=== PATIENT | male | born 1930 | race Caucasian/White ===

== ENCOUNTER → 2016-08-15 | Outpatient (CLI) | payer MEDICARE ==
[2016-08-15 14:34] LABS: CH 32.5; CHCM 33.7; HCT 40.2 % (39.0-53.0); HDW 2.49; HGB 13.5 gm/dL (13.0-17.5); MCH 32.6 pg (25.0-35.0); MCHC 33.6 g/dL (31.0-37.0); MCV 96.9 fL (80.0-100.0); Mean Platelet Volume 6.9; RBC 4.15 m/uL (4.30-5.90); RDW 13.9 % (11.5-15.5); WBC 7.9 k/uL (3.8-10.6)
[2016-08-15 14:39] LABS: Anion Gap 11 mmol/L; Blood Urea Nitrogen 18 mg/dL (9-20); Calcium 9.4 mg/dL (8.4-10.2); Carbon Dioxide 27 mmol/L (22-30); Chloride 102 mmol/L (98-107); Glucose 101 mg/dL (74-99); Non-African American GFR(MDRD) >60 (>60 ml/min/1.73 sqM); Potassium 3.8 mmol/L (3.5-5.1); Sodium 140 mmol/L (137-145)
== END | disposition home or self-care (01) ==
LOC: LABWHC1 13:42
PROVIDERS: ATTEND Internal Medicine Interventional Cardiology
DX: I25.10 Atherosclerotic heart disease of native coronary artery without angina pectoris (principal); I10 Essential (primary) hypertension
CPT/HCPCS: 36415; 80048; 85027

== ENCOUNTER 2016-08-22 07:27 | Day surgery (SDC) | payer MEDICARE ==
[2016-08-21 09:09] VITALS: BMI 25.2
[~2016-08-22 07:27] MED LIST: ALPRAZolam 0.25 MG TAB PO PRN; ALPRAZolam 0.5 MG TAB PO PRN; ASPIRIN 325 MG TAB PO STA; ATORVASTATIN 80 MG TAB PO STA; NITROGLYCERIN SL TABS 0.4 MG TAB SUBLINGUAL PRN; SODIUM CHLORIDE 0.9% 1,000 ML in EMPTY BAG 1 BAG IV ONE
[2016-08-22 07:55] VITALS: RESP 16; TEMP 97.8
[2016-08-22] MEDS ORDERED: LIDOCAINE 2% INJ 20 MG/ML (20 ML MDV) ONE (09:39)
[2016-08-22] MEDS ORDERED: diphenhydrAMINE 50 MG/ML 1 ML VIAL ONE (09:47)
[2016-08-22] MEDS ORDERED: MIDAZOLAM 2 MG/2 ML VIAL ONE (09:47)
[2016-08-22] MEDS ORDERED: MIDAZOLAM 2 MG/2 ML VIAL IVP ONE (09:53)
[2016-08-22] MEDS ORDERED: diphenhydrAMINE 50 MG/ML 1 ML VIAL IVP ONE (09:53)
[2016-08-22] MEDS ORDERED: LIDOCAINE 2% INJ 20 MG/ML SQ ONE (09:55)
[2016-08-22] MEDS ORDERED: NITROGLYCERIN SL TABS 0.4 MG TAB SUBLINGUAL ONE ×2 (10:33→10:39)
[2016-08-22] MEDS ORDERED: IOHEXOL 350 MG/ML 100 ML BOTTLE INJ ONE (10:40)
[2016-08-22] MEDS ORDERED: PRAMIPEXOLE 0.5 MG TAB PO STA (13:17)
[2016-08-22 13:59] VITALS: BP 142/75; PULSE 71
[2016-08-22] MEDS ORDERED: ACETAMINOPHEN TAB 325 MG TAB ONE (14:23)
--- NOTE | 2016-08-23 17:30 | CC ---
DATE OF SERVICE: 08/22/2016 PROCEDURE: 1. Left heart catheterization, coronary angiography and left ventriculography. 2. Selective injection of bypass grafts. 3. Selective injection of HALEY. 4. Aortography MOHAWK projection. Performed by: Dr. Jayson Canas. CLINICAL INFORMATION: Mr. Matt Johnson is an 85-year-old gentleman with a history of hypertension, hyperlipidemia, CAD, previous aortocoronary bypass surgery in 2005. He had HALEY to LAD, vein graft to the ramus and another vein graft to the obtuse marginal branch of circumflex. At that time, RCA was a calcified vessel with no more than 40% to 45% lesion and was not addressed. He has been having symptoms of angina and had a positive stress test suggestive of a moderate area of ischemia in the inferoapical wall and was advised cardiac catheterization. Risks, benefits, options and rationale were explained to the patient and his . PROCEDURE NOTE: Under local anesthesia and strict aseptic precautions, a 6 Hebrew introducer was placed in the right femoral artery. There was heavy calcification in the femoral system, I had some difficulty and had to use a Glidewire. Using the standard left Amado catheters, I performed selective coronary angiography of the left system. I used a Mariah catheter for selective injection of the RCA and the same catheter was used to perform HALEY injection and also vein graft to the obtuse marginal. I used an ART2 catheter to perform selective coronary angiography of the RCA, but I could not find the second vein graft. An LV gram was performed in 30 degrees RÍOS projection and aortogram was performed MOHAWK projection. Patient tolerated the procedure well. I recommended medical therapy with the understanding he may require intervention down the road and also I would seek a surgical opinion. The sheath was then taken out and manual compression applied and he was sent to the room in stable condition. CARDIAC CATHETERIZATION FINDINGS: The left ventricular end-diastolic pressure was about 20 mmHg without any significant gradient across the aortic valve. CORONARY ANGIOGRAPHIC FINDINGS : RIGHT CORONARY ARTERY: This is a dominant vessel, heavily calcified, very tortuous in the proximal one third and at a very angulated area there is an 80% lesion with heavy calcification after which the segment straightens out. The caliber improves and then distally there is again diffuse disease and vessel bifurcates into PDA and PLV. There are no other critical lesions distally, but proximally, there is heavily calcified angulation and an 80% lesion noted. Cannulation of the RCA was somewhat difficult with a very superior takeoff. LEFT MAIN CORONARY ARTERY: This is a short, patent vessel that has about 30 to 40% disease and then distally has almost a subtotal lesion and then bifurcates into LAD and circumflex. The distal left main therefore has a 90% proximal lesion. LEFT ANTERIOR DESCENDING CORONARY ARTERY: Limited antegrade flow noted with a small septal and diagonal branch. I do not see any significant opacification of the rest of the LAD. LEFT POSTERIOR CIRCUMFLEX CORONARY ARTERY: This vessel is totally occluded with limited antegrade flow and then there is total occlusion of the circumflex system noted. SAPHENOUS VEIN GRAFT TO THE OBTUSE MARGINAL BRANCH OF CIRCUMFLEX: This graft is widely patent in its origin, course and insertion site and the opacified obtuse marginal is widely patent and goes back and also pacifies the proximal circumflex and ramus intermedius as well. There is also a groove branch that is opacified. This single vein graft seems to opacify the obtuse marginal, the groove branch as well as the ramus intermedius branch. Saphenous vein graft to the ramus intermedius: This graft was not visualized and there is a suggestion of a total occlusion in some views, but I really could not get a good opacification of the vein graft to the ramus intermedius. Left internal mammary artery grafts to LAD: Initial injection of this graft revealed that the HALEY was patent. Insertion site was also free of significant disease, but there was not much antegrade flow. Most of the flow was seen in retrograde fashion. I gave some additional injections and eventually on the third injection, I saw that there was more of an antegrade flow but the flow was very sluggish beyond the insertion site. It appears that the LAD is a small caliber vessel and the proximal flow is good, but the distal flow is sluggish, but on the fourth injection I was able to opacify the branch almost to the apex. Left ventriculogram: This was performed in 30 degree RÍOS projection, revealed the left ventricle is of normal size with excellent contractility, estimated ejection fraction of 65% without mitral regurgitation. Excellent contractility, the estimated ejection fraction of 60% with mild mitral regurgitation. AORTOGRAM: This was performed in 30 degree MOHAWK projection. This revealed that catheter at the time of injection was actually a little bit into the LV. There is aortic root is opacified. Both the coronary arteries are opacified as well as the vein graft to the obtuse marginal is also seen faintly, but I could not see the other vein graft. The aortic root appears to be of normal size. FINAL IMPRESSION: This patient has a total occlusion of LAD, circumflex and a subtotal occlusion of left main. Right coronary artery is very tortuous, heavily calcified and has 80% proximal lesion. Vein graft to the obtuse marginal is free of significant disease, opacifies the entire circumflex system. The ramus graft appears to be totally occluded not visualized. The left internal mammary artery graft is patent, but beyond the insertion site is somewhat sluggish. Retrograde flow appears to be fairly well preserved. RECOMMENDATIONS: I will review the angiogram, seek a surgical opinion and then make a definitive recommendation. For now, patient will be on medical therapy. He will be discharged later today if he remains stable. Moderate conscious sedation was provided for one hour with a combination of Versed and Benadryl.
--- NOTE | 2016-08-23 17:32 | LTR ---
August 23, 2016 RE: Parag Johnson Dear Dr. Marrufo: Thank you for the opportunity to participate in the care of Mr. Johnson. Please find enclosed my detailed cardiac catheterization report for your review. I am recommending medical therapy for now, but I will seek a surgical opinion and consider intervention of RCA. I am concerned about the LAD graft and the distal flow. Based on these findings, after evaluation in the office, I will make specific recommendations. Thank you for your referral. Please call for questions. With kind personal regards, Sincerely, CONNER RICKETTS MD
== END 2016-08-22 18:37 | disposition home or self-care (01) ==
LOC: CATHCVL 07:27
PROVIDERS: ATTEND Internal Medicine Interventional Cardiology
DX: I25.110 Atherosclerotic heart disease of native coronary artery with unstable angina pectoris (principal); I25.82 Chronic total occlusion of coronary artery; R94.39 Abnormal result of other cardiovascular function study; Z95.1 Presence of aortocoronary bypass graft; I10 Essential (primary) hypertension; E78.5 Hyperlipidemia, unspecified; I08.0 Rheumatic disorders of both mitral and aortic valves; E78.00 Pure hypercholesterolemia, unspecified; E03.9 Hypothyroidism, unspecified; Z82.49 Family history of ischemic heart disease and other diseases of the circulatory system; Z79.82 Long term (current) use of aspirin; Z79.899 Other long term (current) drug therapy; Z88.2 Allergy status to sulfonamides; Z87.891 Personal history of nicotine dependence
CPT/HCPCS: 93459; 93567; 99152; 99153; C1769 ×3; C1894; J2001; J2250; J1200; Q9967

== ENCOUNTER → 2016-09-03 | Outpatient (CLI) | payer MEDICARE ==
[2016-09-03 13:52] LABS: CH 32.2; CHCM 33.3; HCT 41.5 % (39.0-53.0); HDW 2.25; HGB 13.9 gm/dL (13.0-17.5); MCH 32.6 pg (25.0-35.0); MCHC 33.5 g/dL (31.0-37.0); MCV 97.2 fL (80.0-100.0); Mean Platelet Volume 7.4; RBC 4.27 m/uL (4.30-5.90); WBC 6.4 k/uL (3.8-10.6)
[2016-09-03 14:27] LABS: Anion Gap 12 mmol/L; Blood Urea Nitrogen 20 mg/dL (9-20); Calcium 9.5 mg/dL (8.4-10.2); Carbon Dioxide 24 mmol/L (22-30); Chloride 101 mmol/L (98-107); Glucose 93 mg/dL (74-99); Non-African American GFR(MDRD) >60 (>60 ml/min/1.73 sqM); Potassium 3.8 mmol/L (3.5-5.1); Sodium 137 mmol/L (137-145)
== END | disposition home or self-care (01) ==
LOC: LABWHC1 13:32
PROVIDERS: ATTEND Internal Medicine Interventional Cardiology
DX: I25.10 Atherosclerotic heart disease of native coronary artery without angina pectoris (principal); I10 Essential (primary) hypertension
CPT/HCPCS: 36415; 80048; 85027

== ENCOUNTER 2016-09-18 05:52 | Inpatient (IN) | payer MEDICARE ==
[2016-09-17 09:01] VITALS: BMI 24.5
[2016-09-18] MEDS ORDERED: ALPRAZolam 0.5 MG TAB PO PRN (06:02)
[2016-09-18] MEDS ORDERED: NITROGLYCERIN SL TABS 0.4 MG TAB SUBLINGUAL PRN ×2 (06:02→09:57)
[2016-09-18] MEDS ORDERED: SODIUM CHLORIDE 0.9% 1,000 ML in EMPTY BAG 1 BAG IV ONE (06:02)
[2016-09-18] MEDS ORDERED: ASPIRIN 325 MG TAB PO STA (06:02)
[2016-09-18] MEDS ORDERED: ALPRAZolam 0.25 MG TAB PO PRN (06:02)
[2016-09-18] MEDS ORDERED: ATORVASTATIN 80 MG TAB PO STA (06:02)
[2016-09-18] MEDS ORDERED: MIDAZOLAM 2 MG/2 ML VIAL ONE (07:16)
[2016-09-18] MEDS ORDERED: diphenhydrAMINE 50 MG/ML 1 ML VIAL ONE (07:16)
[2016-09-18] MEDS ORDERED: LIDOCAINE 2% INJ 20 MG/ML (20 ML MDV) ONE ×2 (07:16→08:18)
[2016-09-18] MEDS ORDERED: diphenhydrAMINE 50 MG/ML 1 ML VIAL IVP ONE (07:35)
[2016-09-18] MEDS ORDERED: MIDAZOLAM 2 MG/2 ML VIAL IV ONE (07:35)
[2016-09-18] MEDS ORDERED: LIDOCAINE 2% INJ 20 MG/ML SQ ONE ×2 (07:43→08:00)
[2016-09-18] MEDS ORDERED: BIVALIRUDIN BOLUS 250 MG/50 ML IV ONE (08:15)
[2016-09-18] MEDS ORDERED: BIVALIRUDIN 250 MG in SODIUM CHLORIDE 0.9% 50 ML IV ONE (08:16)
[2016-09-18] MEDS ORDERED: HYDROmorphone 2 MG/ML 1 ML SYRINGE ONE (08:59)
[2016-09-18] MEDS: HYDROmorphone 2 MG/ML 1 ML SYRINGE IV ONE ×2 (09:01→09:36)
[2016-09-18] MEDS ORDERED: SODIUM CHLORIDE 0.9% 1,000 ML IV ONE (09:41)
[2016-09-18] MEDS ORDERED: CLOPIDOGREL 75 MG TAB PO ONE (09:50)
[2016-09-18] MEDS ORDERED: CLOPIDOGREL 75 MG TAB ONE (09:52)
[2016-09-18] MEDS ORDERED: ZOLPIDEM 5 MG TAB PO PRN (09:57)
[2016-09-18] MEDS ORDERED: ATROPINE SULFATE 0.1 MG/ML 10ML SYRINGE IV PRN (09:57)
[2016-09-18] MEDS ORDERED: RX INFO: IV CONTRAST WAS GIVEN 1 EACH MISC MISCELLANE PRN (09:57)
[2016-09-18] MEDS ORDERED: MAG HYDROX/AL HYDROX/SIMETH 30 ML CUP PO PRN (09:57)
[2016-09-18] MEDS ORDERED: DIAZEPAM 2 MG TAB PO PRN (10:03)
[2016-09-18] MEDS ORDERED: IOHEXOL 350 MG/ML 100 ML BOTTLE INJ ONE (10:05)
[2016-09-18 10:37] LABS: Glucose,Whole Blood 125 mg/dL (75-99)
[2016-09-18] MEDS: SODIUM CHLORIDE 0.9% 1,000 ML IV SCH (10:44)
--- NOTE | 2016-09-18 11:04 | PTCA ---
DATE OF SERVICE: 09/18/2016 PROCEDURE: 1. Transvenous temporary pacemaker placement from right femoral approach. 2. Orbital atherectomy of proximal severely calcified right coronary artery. 3. Stenting of proximal right coronary artery with JASPER. PERFORMED BY: Dr. Jayson Canas. PROCEDURE NOTE: Under local anesthesia and strict aseptic precautions, a 6 Ukrainian introducer was placed in the right femoral artery and right femoral vein. I had a lot of tortuosity and difficulty and therefore the right femoral sheath was taken out and manual compression used to secure hemostasis. I then went from the left femoral approach and placed a 6 Ukrainian introducer in the left femoral artery under strict aseptic precautions and local anesthesia uneventfully. Initially I started with a KRS guide catheter but I did not get a good guide support. I switched over to an ART 3.5 guide catheter. With this I was able to get a decent guide support. I initially advanced a long BMW, but I had difficulty wiring and therefore I switched over to a whisper wire. A 300 cm long whisper wire was placed. I used a Finecross straight catheter and exchanged this wire to a ViperWire to perform Orbital atherectomy. Prior to the intervention from the left femoral approach with the RCA, I placed a transvenous temporary pacemaker from the right femoral venous approach and the pacemaker was placed in the right ventricular apex with good thresholds. This was placed and a back-up rate of 40 with MA of 5. Good thresholds were obtained. I then performed orbital atherectomy of the proximal RCA lesion. Three passes performed at a low speed. Subsequent angiogram revealed that there was small perforation and also dissection at the site of the lesion. I immediately discontinued the Angiomax and went with a 2.0, 12 mm balloon and tamponaded the area proximal to the perforation. I still had the wire in position, but subsequently the wire position was lost as I was trying to advance a stent. I had to rewire it and at the time of rewiring I went through the dissected plaque in the proximal RCA and then went back into true lumen. I had a lot of difficulty advancing any stent. I gave multiple inflations with the balloon. Patient had transient chest pain with inferior ST elevation. I then switched over to a XBRCA guide catheter. With this, there was a better guide support. I used a whisper wire and left the whisper wire distally. It appeared that the wire went through the true lumen with a very nice wire movement. I deployed 2 stents 2.25 caliber stents at 15 massimo, one in the distal and one in the proximal portion of the calcified segment. It appeared that there I may have gone through the false lumen and came back into the true human when I looked at the angiograms, but the flow in the RCA was brisk. Patient's chest pain was completely gone. His EKG showed remarkable improvement with mild ST elevation that persisted. Flow was at DOT-3 with remarkably good angiographic appearance and flow. Patient was completely free of chest pain. Two drug-eluting stents of 2.25 caliber, 12 mm length were deployed. The patient received Angiomax bolus and infusion. He also received 300 mg of Plavix. The sheath was sutured in. The pacemaker backup was kept at a rate of 40 with MA of 5, but pacer was only as a backup, it was not being used. The arterial sheath was sutured in. Results were explained to the patient and also his family in great detail. I will watch him very closely in the ICU. I also performed echocardiogram right here in the labor utilization superintendent and there was no evidence of any pericardial effusion noted. Good angiographic result was achieved. There is a false lumen and I stented through that but the flow into the [place] vessel is excellent and the flow is a brisk with remarkably good angiographic appearance and flow. The observed perforation was totally sealed up. I expect the patient to do well, but we will watch him very closely. Both sheaths were sutured. Moderate conscious sedation was adminstered for 2 hours with Versed,Dilaudid and Benadryl. DYLAN
--- NOTE | 2016-09-18 11:06 | LTR ---
September 18, 2016 ASH ELLINGTON MD RE: Parag Johnson Dear Dr. Ellington: Thank you for the opportunity to participate in the care of Mr. Johnson. Please find enclosed my detailed PTCA report for your records. This was a technically difficult and challenging procedure. I had a dissection and perforation both of which were addressed and end result is good with a brisk flow. I expect the patient to do well and hopefully we will send him home in the next 48 hours. We will watch him closely in the ICU and I will pull the sheaths later on today. Thank you for your referral and please call for questions. With kindest regards. Sincerely yours, CONNER RCIKETTS MD
--- NOTE | 2016-09-18 11:38 | ECHOF ---
Referral Reason:R/O pericardial effusion MEASUREMENTS -------- HEIGHT: 175.3 cm WEIGHT: 75.3 kg BP: FINDINGS -------- Overall left ventricular systolic function is mildly impaired with, an EF between 45 - 50 %. Basal inferior LV wall motion is hypokinetic. There is no pericardial effusion. CONCLUSIONS -------- 1. Overall left ventricular systolic function is mildly impaired with, an EF between 45 - 50 %. 2. Basal inferior LV wall motion is hypokinetic. 3. There is no pericardial effusion. SPECIAL POLICE: Mishel Espinoza RDCS
[2016-09-18] MEDS: HEPARIN SODIUM,PORCINE 5,000 UNIT/ML 1 ML VIAL SQ SCH ×2 (14:32→20:03)
--- NOTE | 2016-09-18 14:48 | P.GSCN ---
<Shannen Castillo - Last Filed: 09/18/16 14:26> History of Present Illness Consult date: 09/18/16 Reason for Consult: Coronary artery disease, recommendations for surgical revascularization Requesting physician: Ilene Canas History of present illness: This 86-year-old gentleman who is following with Dr. NABIL Canas presented today for cardiac catheterization. He has a history of coronary artery disease with previous bypass graft surgery in 2005 utilizing the HALEY to the LAD, and saphenous vein grafts to the ramus and obtuse marginal arteries. He also had moderate disease in the RCA which was heavily calcified but was not grafted. Recently he complained of increased exertional dyspnea when mowing his lawn and had an abnormal stress test and was recommended to have cardiac catheterization. During this morning's heart catheterization the patient had a complicated PCI of the RCA including dissection which was tacked back using stents. His grafts were patent, he had DOT 3 flow with no significant stenosis. Dr. Mcneil from cardiothoracic surgery was consulted for coronary artery disease. Review of Systems 14 point review systems was completed and was negative except as noted. Past Medical History Past Medical History: Coronary Artery Disease (CAD), Cancer, GERD/Reflux, Hyperlipidemia, Hypertension, Prostate Disorder, Skin Disorder, Thyroid Disorder Additional Past Medical History / Comment(s): hiatal hernia, hx skin cancer History of Any Multi-Drug Resistant Organisms: None Reported Past Surgical History: Cholecystectomy, Coronary Bypass/CABG, Heart Catheterization, Tonsillectomy Additional Past Surgical History / Comment(s): triple bypass 2005, skin cancer removed from face, surgery for pyloric stenosis as infant, shari cataracts, Past Anesthesia/Blood Transfusion Reactions: No Reported Reaction Past Psychological History: No Psychological Hx Reported Smoking Status: Former smoker Past Alcohol Use History: Rare Additional Past Alcohol Use History / Comment(s): smoked age 17, on and off until 1956 Past Drug Use History: None Reported - Past Family History Mother Family Medical History: Cancer Medications and Allergies Home Medications Medication Instructions Recorded Confirmed Type Atenolol [Tenormin] 25 mg PO DAILY 08/21/16 09/18/16 History Diazepam 2 mg PO DAILY PRN 08/21/16 09/18/16 History Levothyroxine Sodium [Synthroid] 75 mcg PO DAILY 08/21/16 09/18/16 History Lisinopril [Zestril] 20 mg PO DAILY 08/21/16 09/18/16 History Multivitamins, Thera [Multivitamin 1 tab PO DAILY 08/21/16 09/18/16 History (formulary)] Pramipexole [Mirapex] 0.5 mg PO HS 08/21/16 09/18/16 History hydrALAZINE HCL [Apresoline] 50 mg PO BID 08/21/16 09/18/16 History Hydrochlorothiazide [Hydrodiuril] 25 mg PO DAILY 09/18/16 09/18/16 History Allergies Allergy/AdvReac Type Severity Reaction Status Date / Time Sulfa (Sulfonamide Allergy Unknown Verified 09/18/16 06:17 Antibiotics) Surgical - Exam Vital Signs Temp Resp BP Pulse Ox 97.8 F 18 143/78 97 09/18/16 06:35 09/18/16 06:35 09/18/16 06:35 09/18/16 06:35 - General well developed, well nourished, no distress, no pain - Eyes PERRL, normal ocular movement - ENT no hearing loss - Neck trachea midline - Respiratory Currently on room air with oxygen saturation 97%. normal expansion, normal respiratory effort, clear to auscultation - Cardiovascular Sinus bradycardia on telemetry. Transvenous pacemaker connected through right groin venous sheath, VVI backup rate 40 bpm. Left groin arterial sheath in place. Rhythm: regular Heart Sounds: normal: S1, S2 - Abdomen Abdomen: soft, non tender, bowel sounds - Genitourinary Deferred - Rectum Deferred - Integumentary Bilateral groins soft, nontender. no rash - Neurologic normal coordination, normal sensation - Psychiatric oriented to time, oriented to person, oriented to place, speech is normal, memory intact Results - Labs Abnormal Lab Results - Last 24 Hours (Table) 09/18/16 Range/Units 10:35 POC Glucose (mg/dL) 125 H (75-99) mg/dL Assessment and Plan (1) Coronary artery disease Status: Acute (2) Status post coronary artery bypass graft Status: Acute (3) Hypertension Status: Acute (4) Hyperlipidemia Status: Acute (5) Hypothyroidism Status: Acute Plan: The patient was seen and examined with Dr. Mcneil. Chart/diagnostics reviewed. Patient is in no acute distress. No surgical intervention planned at this time. Our recommendation would be to observe his clinical status and maximize his medical management. If he should become unstable we would consider a redo coronary artery bypass graft surgery. Thank you Dr. Canas for this consult. We look for to do the care of your patient. Time with Patient: Greater than 30 <Elmer Mcneil - Last Filed: 09/21/16 09:31> Surgical - Exam Vital Signs Temp Resp BP Pulse Ox 97.8 F 18 143/78 97 09/18/16 06:35 09/18/16 06:35 09/18/16 06:35 09/18/16 06:35 Results - Labs 09/20/16 06:00 09/20/16 06:00 Assessment and Plan Plan: Agree with above. Cath films were reviewed. Complicated intervention on calcified right coronary artery with iatrogenic dissection and microperforation. Subsequent angioplasty and stenting with good angiographic result and DOT 3 flow to distal vessel. Patient currently asymptomatic. Would only recommend surgical intervention if significant symptoms should recur. Thank you.
[2016-09-18] MEDS: ceFAZolin 1,000 MG in DEXTROSE/WATER 1 50ML.BAG IVPB SCH (15:11)
[2016-09-18] MEDS ORDERED: HYDROmorphone 1 MG/ML 1 ML SYRINGE ONE (16:21)
[2016-09-18] MEDS: HYDROmorphone 1 MG/ML 1 ML SYRINGE IVP PRN (16:25)
[2016-09-18] MEDS ORDERED: TEMAZEPAM 15 MG CAP PO PRN (17:51)
[2016-09-18] MEDS: PRAMIPEXOLE 0.5 MG TAB PO SCH (20:03)
[2016-09-18] MEDS: hydrALAZINE HCL 50 MG TAB PO SCH (20:03)
[2016-09-19] MEDS: SODIUM CHLORIDE 0.9% 1,000 ML IV SCH (00:35)
[2016-09-19] MEDS: ceFAZolin 1,000 MG in DEXTROSE/WATER 1 50ML.BAG IVPB SCH ×2 (00:35→08:50)
[2016-09-19] MEDS: HYDROmorphone 1 MG/ML 1 ML SYRINGE IVP PRN ×4 (02:51→18:52)
[2016-09-19 04:56] LABS: Basophils % (A) 0 %; CH 32.4; CHCM 33.3; Eosinophils # (A) 0.1 k/uL (0-0.7); Eosinophils % (A) 1 %; HCT 37.4 % (39.0-53.0); HDW 2.17; HGB 12.3 gm/dL (13.0-17.5); Luc # (Auto) 0.12; Luc % (Auto) 2; Lymphocytes # (A) 1.4 k/uL (1.0-4.8); Lymphocytes % (A) 18 %; MCH 32.1 pg (25.0-35.0); MCV 97.5 fL (80.0-100.0); Mean Platelet Volume 7.2; Monocytes # (A) 0.4 k/uL (0-1.0); Monocytes % (A) 5 %; Neutrophils # (A) 5.6 k/uL (1.3-7.7); Neutrophils % (A) 75 %; RBC 3.84 m/uL (4.30-5.90); RDW 14.1 % (11.5-15.5); WBC 7.5 k/uL (3.8-10.6); WBC (Perox) 7.66
[2016-09-19 05:15] LABS: Anion Gap 6 mmol/L; Blood Urea Nitrogen 18 mg/dL (9-20); Calcium 8.8 mg/dL (8.4-10.2); Carbon Dioxide 25 mmol/L (22-30); Chloride 102 mmol/L (98-107); Glucose 111 mg/dL (74-99); Non-African American GFR(MDRD) >60 (>60 ml/min/1.73 sqM); Sodium 133 mmol/L (137-145)
[2016-09-19] MEDS: LEVOTHYROXINE 75 MCG TAB PO SCH (05:59)
[2016-09-19] MEDS ORDERED: ATROPINE SULFATE 0.1 MG/ML 10ML SYRINGE ONE (08:36)
[2016-09-19] MEDS: ATENOLOL 25 MG TAB PO SCH (08:43)
[2016-09-19] MEDS: LISINOPRIL 20 MG TAB PO SCH (08:43)
[2016-09-19] MEDS: HYDROCHLOROTHIAZIDE 12.5 MG CAP PO SCH (08:43)
[2016-09-19] MEDS: CLOPIDOGREL 75 MG TAB PO SCH (08:43)
[2016-09-19] MEDS: ASPIRIN 81 MG CHEW PO SCH (08:43)
[2016-09-19] MEDS: HEPARIN SODIUM,PORCINE 5,000 UNIT/ML 1 ML VIAL SQ SCH ×2 (08:44→20:19)
[2016-09-19] MEDS: hydrALAZINE HCL 50 MG TAB PO SCH ×2 (08:44→20:19)
--- NOTE | 2016-09-19 09:43 | P.PN ---
Subjective Principal diagnosis: Coronary artery disease, status post cardiac catheterization. Patient is currently sitting up in the bed in no acute distress. Denies chest pain, shortness of breath. Left femoral arterial sheath was discontinued. Right femoral venous sheath remains in place but is about to be pulled. Objective - Vital Signs Vital signs: Vital Signs Temp 98.2 F 09/19/16 08:00 Pulse 63 09/19/16 09:00 Resp 16 09/19/16 09:00 BP 135/72 09/19/16 09:00 Pulse Ox 95 09/19/16 09:00 Intake & Output 09/18/16 09/19/16 09/19/16 18:59 06:59 18:59 Intake Total 1895 900 225 Output Total 1755 1275 300 Balance 140 -375 -75 Weight 83 kg 81.9 kg Intake: IV 1475 900 225 Sodium Chloride 0.9% 1, 600 900 225 000 ml @ 75 mls/hr IV . [id number] MAURISIO Rx#:[id number] Intake, IV Titration 100 Amount ceFAZolin 1,000 mg In 100 Dextrose/Water 1 50ml.bag @ 100 mls/hr IVPB Q8HR MAURISIO Rx#:[id number] Oral 320 Output: Urine 1755 1275 300 Other: # Bowel Movements 0 ABP, PAP, CO, CI - Last Documented Arterial Blood Pressure 349/345 - Constitutional General appearance: Present: cooperative, no acute distress - Respiratory Details: Lungs sounds diminished bilaterally. Respirations even, nonlabored. Currently on room air with oxygen saturation 96%. - Cardiovascular Details: Normal sinus rhythm on telemetry. Palpable DP/PT pulses bilaterally. Rhythm: regular Heart sounds: normal: S1, S2 - Gastrointestinal Gastrointestinal Comment(s): Abdomen soft, nontender, nondistended. Active bowel sounds 4 quadrants. Tolerating diet. - Genitourinary Genitourinary Comment(s): Continues to void clear, yellow urine per urinal. - Musculoskeletal Musculoskeletal: Present: strength equal bilaterally - Psychiatric Psychiatric: Present: A&O x's 3, appropriate affect, intact judgment & insight - Allied health notes Allied health notes reviewed: nursing - Labs CBC & Chem 7: 09/19/16 04:46 09/19/16 04:46 Labs: Abnormal Lab Results - Last 24 Hours (Table) 09/18/16 09/19/16 09/19/16 Range/Units 10:35 04:46 04:46 RBC 3.84 L (4.30-5.90) m/uL Hgb 12.3 L (13.0-17.5) gm/dL Hct 37.4 L (39.0-53.0) % Sodium 133 L (137-145) mmol/L Glucose 111 H (74-99) mg/dL POC Glucose (mg/dL) 125 H (75-99) mg/dL Assessment and Plan (1) Coronary artery disease Status: Acute (2) Status post coronary artery bypass graft Status: Acute (3) Hypertension Status: Acute (4) Hyperlipidemia Status: Acute (5) Hypothyroidism Status: Acute Plan: The patient was seen and examined. Chart/diagnostics reviewed. Patient is in no acute distress. Management per cardiology. No surgical intervention at this time. We will see patient as needed. Time with Patient: Greater than 30
--- NOTE | 2016-09-19 12:22 | P.CONS ---
History of Present Illness - Reason for Consult Consult date: 09/19/16 CHest pain - History of Present Illness This 86-year-old male patient of Dr Marrufo with past history of coronary artery disease with previous bypass graft surgery in 2005 utilizing the HALEY to the LAD , and saphenous vein grafts to the ramus and obtuse marginal arteries. He also had moderate disease in the RCA which was heavily calcified but was not grafted. He also has history of gastroesophageal reflux disease, hyperlipidemia , hypertension, skin cancer, hypothyroidism. Recently he complained of increased exertional dyspnea when mowing his lawn and had an abnormal stress test and was recommended to have cardiac catheterization. He underwent a heart catheterization with Dr. NABIL Canas yesterday and found to have aheart catheterization the patient had a complicated PCI of the RCA including dissection which was tacked back using stents. His grafts were patent, he had DOT 3 flow with no significant stenosis. Dr. Mcneil from cardiothoracic surgery was consulted for coronary artery disease. Patient was seen by cardiothoracic surgery and he was recommended for medical management for now unless the patient was quite symptomatic and and stable, patient has been doing fine over the last 24 hours he is sitting up in bed in no apparent distress he denies any chest pain or discomfort and some shoulder aches and he denies any dizziness or lightheadedness at this time. Review of Systems Constitutional: Denies anorexia, Denies chronic headaches, Denies lethargy, Denies malaise, Denies weight gain, Denies weight loss Eyes: denies blurred vision, denies bulging eye, denies decreased vision, denies diplopia Ears: deny: decreased hearing Ears, nose, mouth and throat: Denies dysphagia, Denies neck lump, Denies swelling in throat, Denies sore throat, Denies vertigo Cardiovascular: Reports decreased exercise tolerance, Reports dyspnea on exertion, Reports high blood pressure, Reports shortness of breath, Denies chest pain, Denies phlebitis, Denies rapid heart beat, Denies syncope Respiratory: Denies congestion, Denies cough, Denies cough with sputum, Denies home oxygen, Denies sleep apnea, Denies snoring, Denies wheezing Gastrointestinal: Denies abdominal pain, Denies bloating, Denies BRBPR, Denies heartburn, Denies hematemesis, Denies hematochezia, Denies melena, Denies nausea , Denies vomiting Genitourinary: Reports nocturia, Denies dysuria Musculoskeletal: Denies myalgias Musculoskeletal: absent: ankle pain, ankle stiffness, ankle swelling, as per HPI , elbow pain, elbow stiffness, elbow swelling, foot pain, foot stiffness, foot swelling, hand pain, hand stiffness, hand swelling, hip pain, hip stiffness, hip swelling, knee pain, knee stiffness, knee swelling, shoulder pain, shoulder stiffness, shoulder swelling, wrist pain, wrist stiffness, wrist swelling Integumentary: Denies pruritus, Denies rash Neurological: Denies numbness, Denies weakness Psychiatric: Denies anxiety, Denies depression Endocrine: Denies fatigue, Denies weight change Past Medical History Past Medical History: Coronary Artery Disease (CAD), Cancer, GERD/Reflux, Hyperlipidemia, Hypertension, Osteoarthritis (OA), Prostate Disorder, Skin Disorder, Thyroid Disorder Additional Past Medical History / Comment(s): hiatal hernia, hx skin cancer History of Any Multi-Drug Resistant Organisms: None Reported Past Surgical History: Cholecystectomy, Coronary Bypass/CABG, Heart Catheterization, Tonsillectomy Additional Past Surgical History / Comment(s): triple bypass 2006, skin cancer removed from face, surgery for pyloric stenosis as infant, shari cataracts, laparoscopic cholecystectomy. Past Anesthesia/Blood Transfusion Reactions: No Reported Reaction Past Psychological History: No Psychological Hx Reported Smoking Status: Former smoker (Patient used to smoke about a pack every week and he smoked from the age of 17 and he quit in 1956.) Past Alcohol Use History: Rare Additional Past Alcohol Use History / Comment(s): smoked age 17, on and off until 1956 Past Drug Use History: None Reported - Past Family History Mother Family Medical History: Cancer (Mother at age of 81 from stomach cancer.) Father Family Medical History: Coronary Artery Disease (CAD) (Father at age of 81 from CAD.) Sister(s) Family Medical History: No Reported History (Patient has a younger sister with no major medical problems.) Daughter(s) Family Medical History: No Reported History (Patient has one daughter no major medical problems) Son(s) Family Medical History: No Reported History (Patient has 2 sons no major medical problems.) Medications and Allergies Home Medications Medication Instructions Recorded Confirmed Type Aspirin 325 mg PO DAILY 08/21/16 09/18/16 History Atenolol [Tenormin] 25 mg PO DAILY 08/21/16 09/18/16 History Atorvastatin [Lipitor] 20 mg PO HS 08/21/16 09/18/16 History Diazepam 2 mg PO DAILY PRN 08/21/16 09/18/16 History Levothyroxine Sodium [Synthroid] 75 mcg PO DAILY 08/21/16 09/18/16 History Lisinopril [Zestril] 20 mg PO DAILY 08/21/16 09/18/16 History Multivitamins, Thera [Multivitamin 1 tab PO DAILY 08/21/16 09/18/16 History (formulary)] Niacin 250 mg PO DAILY 08/21/16 09/18/16 History Omeprazole 20 mg PO DAILY 08/21/16 09/18/16 History Pramipexole [Mirapex] 0.5 mg PO HS 08/21/16 09/18/16 History hydrALAZINE HCL [Apresoline] 50 mg PO BID 08/21/16 09/18/16 History Hydrochlorothiazide [Hydrodiuril] 25 mg PO DAILY 09/18/16 09/18/16 History Allergies Allergy/AdvReac Type Severity Reaction Status Date / Time Sulfa (Sulfonamide Allergy Unknown Verified 09/18/16 06:17 Antibiotics) Physical Exam Vitals: Vital Signs Temp Pulse Pulse Pulse Resp BP BP 09/19/16 09:00 63 16 135/72 09/19/16 08:00 98.2 F 64 18 131/75 09/19/16 07:00 62 15 112/70 09/19/16 06:00 71 33 H 118/69 09/19/16 05:00 63 11 L 101/66 09/19/16 04:00 65 17 104/65 09/19/16 03:00 65 15 117/66 09/19/16 02:00 61 12 123/71 09/19/16 01:00 64 16 138/80 09/19/16 00:00 98.3 F 73 12 108/69 09/18/16 23:00 65 10 L 135/68 09/18/16 22:00 66 16 137/79 09/18/16 21:00 71 16 136/87 09/18/16 20:10 62 16 133/81 09/18/16 20:00 97.6 F 62 16 133/81 09/18/16 19:10 65 15 152/90 09/18/16 19:05 66 18 152/90 09/18/16 19:00 64 18 152/90 09/18/16 18:55 60 21 152/90 09/18/16 18:50 66 17 149/84 09/18/16 18:45 71 27 H 149/84 09/18/16 18:40 61 15 149/84 09/18/16 18:35 67 11 L 149/84 09/18/16 18:30 65 32 H 149/84 09/18/16 18:25 66 17 149/84 09/18/16 18:20 65 16 133/83 09/18/16 18:15 64 17 133/83 09/18/16 18:10 66 21 133/83 09/18/16 18:05 59 L 19 133/83 09/18/16 18:00 61 31 H 133/83 09/18/16 17:55 57 L 15 133/83 09/18/16 17:50 57 L 17 130/83 09/18/16 17:45 62 21 130/83 09/18/16 17:40 57 L 19 130/83 09/18/16 17:35 59 L 17 130/83 09/18/16 17:30 58 L 20 135/84 09/18/16 17:25 57 L 14 135/84 09/18/16 17:20 59 L 18 135/84 09/18/16 17:15 59 L 12 123/87 09/18/16 17:10 60 16 123/79 09/18/16 17:05 59 L 17 123/79 09/18/16 17:00 97.8 F 60 21 123/79 09/18/16 16:50 58 L 13 120/75 09/18/16 16:40 59 L 16 120/75 09/18/16 16:30 62 22 121/72 09/18/16 16:20 63 34 H 121/72 09/18/16 16:10 57 L 21 115/66 09/18/16 16:00 56 L 57 L 57 L 16 115/66 09/18/16 15:50 97.8 F 53 L 15 115/66 09/18/16 15:40 56 L 12 115/66 09/18/16 15:30 54 L 8 L 115/66 09/18/16 15:20 57 L 9 L 115/66 09/18/16 15:10 54 L 23 122/68 09/18/16 15:00 56 L 20 122/68 09/18/16 14:50 61 32 H 122/68 09/18/16 14:40 57 L 17 122/68 09/18/16 14:30 98.2 F 51 L 28 H 122/68 09/18/16 14:20 57 L 22 122/68 09/18/16 14:10 55 L 16 130/81 09/18/16 14:00 51 L 17 130/81 09/18/16 13:50 58 L 27 H 130/81 09/18/16 13:42 57 L 57 L 18 134/61 09/18/16 13:40 56 L 27 H 130/81 09/18/16 13:30 57 L 22 130/81 09/18/16 13:20 60 27 H 130/81 09/18/16 13:10 57 L 42 H 134/79 09/18/16 13:00 57 L 17 134/79 09/18/16 12:50 58 L 27 H 134/79 09/18/16 12:42 97.5 F L 56 L 56 L 18 09/18/16 12:40 55 L 23 134/79 09/18/16 12:30 56 L 16 134/79 09/18/16 12:20 56 L 13 134/79 09/18/16 12:10 57 L 12 139/75 09/18/16 12:00 57 L 56 L 56 L 18 139/75 09/18/16 11:50 57 L 20 139/75 09/18/16 11:42 98.4 F 56 L 56 L 18 138/68 09/18/16 11:40 55 L 18 139/75 09/18/16 11:30 60 15 139/75 09/18/16 11:20 59 L 18 139/75 09/18/16 11:15 98.4 F 57 L 18 09/18/16 11:10 97.4 F L 57 L 19 139/75 09/18/16 11:00 58 L 14 139/75 09/18/16 10:50 53 L 12 139/75 09/18/16 10:40 56 L 18 139/75 BP Pulse Ox 09/19/16 09:00 95 06/07/17 08:00 95 09/19/16 07:00 96 09/19/16 06:00 96 09/19/16 05:00 97 09/19/16 04:00 96 09/19/16 03:00 97 09/19/16 02:00 96 09/19/16 01:00 96 09/19/16 00:00 96 09/18/16 23:00 96 09/18/16 22:00 96 09/18/16 21:00 96 09/18/16 20:10 96 09/18/16 20:00 96 09/18/16 19:10 97 09/18/16 19:05 97 09/18/16 19:00 95 09/18/16 18:55 97 09/18/16 18:50 97 09/18/16 18:45 97 09/18/16 18:40 97 09/18/16 18:35 94 L 09/18/16 18:30 96 09/18/16 18:25 95 09/18/16 18:20 95 09/18/16 18:15 94 L 09/18/16 18:10 96 09/18/16 18:05 95 09/18/16 18:00 97 09/18/16 17:55 96 09/18/16 17:50 97 09/18/16 17:45 94 L 09/18/16 17:40 96 09/18/16 17:35 95 09/18/16 17:30 96 09/18/16 17:25 96 09/18/16 17:20 96 09/18/16 17:15 96 09/18/16 17:10 95 09/18/16 17:05 92 L 09/18/16 17:00 95 09/18/16 16:50 95 09/18/16 16:40 95 09/18/16 16:30 97 09/18/16 16:20 90 L 09/18/16 16:10 96 09/18/16 16:00 96 09/18/16 15:50 96 09/18/16 15:40 93 L 09/18/16 15:30 96 09/18/16 15:20 96 09/18/16 15:10 97 09/18/16 15:00 97 09/18/16 14:50 95 09/18/16 14:40 98 09/18/16 14:30 97 09/18/16 14:20 96 09/18/16 14:10 97 09/18/16 14:00 96 09/18/16 13:50 95 09/18/16 13:42 97 09/18/16 13:40 95 09/18/16 13:30 95 09/18/16 13:20 96 09/18/16 13:10 95 09/18/16 13:00 97 09/18/16 12:50 95 09/18/16 12:42 136/55 97 09/18/16 12:40 95 09/18/16 12:30 97 09/18/16 12:20 96 09/18/16 12:10 95 09/18/16 12:00 96 09/18/16 11:50 97 09/18/16 11:42 96 09/18/16 11:40 97 09/18/16 11:30 96 09/18/16 11:20 95 09/18/16 11:15 139/75 97 09/18/16 11:10 96 09/18/16 11:00 94 L 09/18/16 10:50 94 L 09/18/16 10:40 96 Intake and Output 09/18/16 09/19/16 09/19/16 22:59 06:59 14:59 Intake Total 700 600 225 Output Total 880 975 300 Balance -180 -375 -75 Intake: IV 600 600 225 Sodium Chloride 0.9% 1, 600 600 225 000 ml @ 75 mls/hr IV . [id number] [facility] Rx#:[id number] Intake, IV Titration 100 Amount ceFAZolin 1,000 mg In 100 Dextrose/Water 1 50ml.bag @ 100 mls/hr IVPB Q8HR [facility] Rx#:[id number] Output: Urine 880 975 300 Other: # Bowel Movements 0 Weight 83 kg 81.9 kg - Constitutional General appearance: average body habitus, no acute distress - EENT Eyes: anicteric sclerae, EOMI, PERRLA, no ptosis, no scleral icterus, normal appearance ENT: NA/AT, normal oropharynx, no thrush Ears: bilateral: normal - Neck Neck: no lymphadenopathy, normal ROM, no rigidity, no stridor, no thyromegaly Carotids: bilateral: upstroke delayed Thyroid: bilateral: normal size - Respiratory Respiratory: bilateral: diminished, negative: dullness, rales, rhonchi, wheezing , prolonged expiration, prolonged inspiration - Cardiovascular Rhythm: regular Heart sounds: normal: S1, S2 Abnormal Heart Sounds: systolic murmur, no rub, no S3 Gallop, no S4 Gallop, no click - Gastrointestinal General gastrointestinal: normal bowel sounds, soft, no splenomegaly, no tenderness, no umbilical hernia, no ventral hernia - Integumentary Integumentary: normal, normal turgor - Neurologic Neurologic: CNII-XII intact - Musculoskeletal Musculoskeletal: gait normal, strength equal bilaterally - Psychiatric Psychiatric: A&O x's 3, appropriate affect, intact judgment & insight Results CBC & Chem 7: 09/19/16 04:46 09/19/16 04:46 Labs: Abnormal Lab Results - Last 24 Hours (Table) 09/18/16 09/19/16 09/19/16 Range/Units 10:35 04:46 04:46 RBC 3.84 L (4.30-5.90) m/uL Hgb 12.3 L (13.0-17.5) gm/dL Hct 37.4 L (39.0-53.0) % Sodium 133 L (137-145) mmol/L Glucose 111 H (74-99) mg/dL POC Glucose (mg/dL) 125 H (75-99) mg/dL Assessment and Plan Plan: Assessment and plan: 1. CAD post CABG back in 2005 with HALEY to LAD, SVG to the ramus, SVG to the obtuse marginal, with significant disease involving the RCA post left heart catheterization with including dissection in the artery that was packed with stents with resultant DOT-3 flow. Continue current medical management, patient was seen by cardiovascular surgery was recommended to continue medical management without any intervention at this time. Continue aspirin 81 mg orally once every day, continue Plavix 75 mg orally once every day, atenolol 25 mg orally once every day, Lipitor 80 mg orally once every day, hydralazine 50 mg orally twice every day. 2. CAD post CABG in 2005 hours 3 with PCI of the RCA. Continue treatment as in paragraph #1. 3. Hypertension and hypertensive cardiovascular disease. Continue atenolol 25 mg orally once every day, hydralazine 50 mg orally twice every day, lisinopril 20 mg orally once every day, hydrochlorothiazide 12.5 mg orally once every day. 4. Hyperlipidemia. Continue Lipitor 80 mg orally once every day. 5. Hypothyroidism. Continue Synthroid 75 g orally once every day. 6. Remote tobacco use with COPD. Stable at this time. 7. Restless leg syndrome. Continue patient on Mirapex 0.25 mg bedtime. 8. DVT prophylaxis. Heparin 5000 units subcutaneously every 8 hours. 9. GI prophylaxis. 10. Thank you for the courtesy consult.
--- NOTE | 2016-09-19 12:34 | PN ---
DATE OF SERVICE: Mr. Parag Johnson had stenting of proximal RCA performed by me following an orbital atherectomy with a dissection and a perforation. Perforation was addressed by tamponade with success. The dissection was addressed with 2 stents. There appears to be a false and true lumen, but the flow in the vessel is excellent. Following the procedure, I moved him to the ICU to watch him closely. He had a completely uneventful course. His vital signs are stable. He is asymptomatic. His EKG does not reveal any ST elevation. His laboratory data is good and echo revealed no evidence of any pericardial effusion. This morning, he is asymptomatic, blood pressure is 128/70, pulse rate is 62 per minute, S1, S2 heard normally. There is a short systolic murmur at the base of the heart, second heart sound is preserved. Lungs are clear. Abdomen is soft, nontender. Left groin is clean and dry. Right groin has a temporary pacemaker and a 6 [place] venous sheath. I have taken the pacemaker out. Today we will take the venous sheath out and will after 2 hours of rest, he will increase activity and will be moving him to telemetry with hopeful discharge tomorrow. I discussed my thoughts in detail with the patient and I expect that he will be ambulating around 10:30, 11:00 this morning if stable. Plan is to continue current medical regimen.
[2016-09-19 16:19] VITALS: RESP 18
[2016-09-19] MEDS: PRAMIPEXOLE 0.5 MG TAB PO SCH (20:19)
[2016-09-19] MEDS ORDERED: ATORVASTATIN 80 MG TAB PO SCH (21:00)
[2016-09-20] MEDS: LEVOTHYROXINE 75 MCG TAB PO SCH (06:18)
[2016-09-20 06:26] LABS: Basophils % (A) 0 %; CH 32.6; CHCM 33.9; Eosinophils # (A) 0.1 k/uL (0-0.7); Eosinophils % (A) 2 %; HCT 35.1 % (39.0-53.0); HGB 11.8 gm/dL (13.0-17.5); Luc # (Auto) 0.15; Luc % (Auto) 2; Lymphocytes # (A) 1.3 k/uL (1.0-4.8); Lymphocytes % (A) 21 %; MCH 32.5 pg (25.0-35.0); MCHC 33.6 g/dL (31.0-37.0); MCV 96.7 fL (80.0-100.0); Monocytes # (A) 0.5 k/uL (0-1.0); Monocytes % (A) 8 %; Neutrophils # (A) 4.3 k/uL (1.3-7.7); Neutrophils % (A) 67 %; RBC 3.63 m/uL (4.30-5.90); RDW 14.2 % (11.5-15.5); WBC 6.4 k/uL (3.8-10.6)
[2016-09-20 06:39] LABS: ALT 29 U/L (21-72); AST 32 U/L (17-59); Alkaline Phosphatase 61 U/L (38-126); Anion Gap 8 mmol/L; Blood Urea Nitrogen 19 mg/dL (9-20); Calcium 8.8 mg/dL (8.4-10.2); Carbon Dioxide 28 mmol/L (22-30); Chloride 99 mmol/L (98-107); Glucose 109 mg/dL (74-99); Magnesium 1.6 mg/dL (1.6-2.3); Non-African American GFR(MDRD) >60 (>60 ml/min/1.73 sqM); Potassium 3.8 mmol/L (3.5-5.1); Sodium 135 mmol/L (137-145); Total Bilirubin 0.8 mg/dL (0.2-1.3); Total Protein 6.3 g/dL (6.3-8.2)
[2016-09-20] MEDS: HYDROCHLOROTHIAZIDE 12.5 MG CAP PO SCH (08:07)
[2016-09-20] MEDS: LISINOPRIL 20 MG TAB PO SCH (08:07)
[2016-09-20] MEDS: CLOPIDOGREL 75 MG TAB PO SCH (08:07)
[2016-09-20] MEDS: hydrALAZINE HCL 50 MG TAB PO SCH (08:07)
[2016-09-20] MEDS: ATENOLOL 25 MG TAB PO SCH (08:08)
[2016-09-20] MEDS: HEPARIN SODIUM,PORCINE 5,000 UNIT/ML 1 ML VIAL SQ SCH (08:08)
[2016-09-20] MEDS: ASPIRIN 81 MG CHEW PO SCH (08:08)
[2016-09-20 08:57] VITALS: TEMP 97.5
[2016-09-20 08:59] VITALS: BP 113/68; PULSE 83
--- NOTE | 2016-09-21 15:31 | DS ---
DATE OF ADMISSION: 09/18/2016 DATE OF DISCHARGE: 09/20/2016 DIAGNOSES: 1. Unstable angina. 2. Hypertension. 3. Hyperlipidemia. 4. History of prior aortocoronary bypass surgery. Mr. Parag Johnson was evaluated by me this morning. He is asymptomatic, resting comfortably. Blood pressure is 118/70, pulse rate is 62 per minute. S1, S2 heard normally. Short systolic murmur noted. Lungs are clear. Abdomen and lower extremity exam is unremarkable. Both groins are clean and dry with good pulse. This gentleman was brought into the hospital electively for a very complex PCI and orbital atherectomy of proximal RCA, which was heavily calcified and tortuous. Procedure was performed from the left femoral approach. I had a temporary transvenous pacemaker from right femoral approach. Procedure was complicated by intimal dissection and also a small perforation, which was addressed by tamponading prior to proximal to the perforation and also by stenting to what seems to be a false lumen. Eventual result was excellent with remarkably good DOT-3 flow with a total resolution of chest pain and normalization of EKG changes eventually. Patient did not have any further events. I explained the details of the procedure and the complication that resulted to the patient and his family members, including and 2 sons. I have observed him for 48 hours. He is asymptomatic, ambulating without symptoms and his EKG is normal, hemodynamically he remained stable. He will be discharged today and I will see him on the twelfth of this month at 9:45 a.m. Discharge instructions regarding activity, diet, medications were given. Advised not to do any strenuous activity. Other than activities of daily living. The patient will call me if he has any further questions and I will see him in the office on the lfth.
== END 2016-09-20 10:23 | disposition home or self-care (01) | DRG 246 ==
LOC: CATHCVL 05:52 → 6ICU 09:51 → 6SEL 09-19 15:13
PROVIDERS: ADMIT Internal Medicine Interventional Cardiology; ATTEND Internal Medicine Interventional Cardiology
PROC: X2C0361 Extirpation of Matter from Coronary Artery, One Artery using Orbital Atherectomy Technology, Percutaneous Approach, New Technology Group 1 (ICD-10-PCS; 2016-09-18)
PROC: 027034Z Dilation of Coronary Artery, One Artery with Drug-eluting Intraluminal Device, Percutaneous Approach (ICD-10-PCS; principal; 2016-09-18 07:20)
DX: I25.10 Atherosclerotic heart disease of native coronary artery without angina pectoris (principal); I25.42 Coronary artery dissection; I11.9 Hypertensive heart disease without heart failure; I97.88 Other intraoperative complications of the circulatory system, not elsewhere classified; I97.51 Accidental puncture and laceration of a circulatory system organ or structure during a circulatory system procedure; J44.9 Chronic obstructive pulmonary disease, unspecified; E03.9 Hypothyroidism, unspecified; E78.5 Hyperlipidemia, unspecified; G25.81 Restless legs syndrome; K21.9 Gastro-esophageal reflux disease without esophagitis; K44.9 Diaphragmatic hernia without obstruction or gangrene; M19.90 Unspecified osteoarthritis, unspecified site; N42.9 Disorder of prostate, unspecified; I35.9 Nonrheumatic aortic valve disorder, unspecified; E66.3 Overweight; Z68.25 Body mass index [BMI] 25.0-25.9, adult; Z79.82 Long term (current) use of aspirin; Z79.899 Other long term (current) drug therapy; Z95.1 Presence of aortocoronary bypass graft; Z87.891 Personal history of nicotine dependence; Z85.828 Personal history of other malignant neoplasm of skin; Z88.2 Allergy status to sulfonamides; Z82.49 Family history of ischemic heart disease and other diseases of the circulatory system; Y84.0 Cardiac catheterization as the cause of abnormal reaction of the patient, or of later complication, without mention of misadventure at the time of the procedure; Y71.8 Miscellaneous cardiovascular devices associated with adverse incidents, not elsewhere classified
CPT/HCPCS: 80048; 80053; 83735; 85025; 92924; 93308

== ENCOUNTER 2017-10-28 13:43 | Emergency (ER) | payer MEDICARE ==
[2017-10-28 13:51] VITALS: RESP 18; TEMP 98.4
--- NOTE | 2017-10-28 14:13 | ED ---
General Adult HPI - General Source: patient, family, RN notes reviewed Mode of arrival: wheelchair Limitations: no limitations <Darrell Augustine - Last Filed: 10/28/17 14:37> <Michael Oates - Last Filed: 10/28/17 14:44> - General Chief complaint: Fall Stated complaint: Fell facial injury Time Seen by Provider: 10/28/17 13:56 - History of Present Illness Initial comments: This an 87-year-old male presents emergency Department with chief complaint of a fall. Patient states he tripped at the [facility] over some metal pipes. Patient states he fell directly forward. Patient states he did strike his head , face and right shoulder region. He does admit that he has abrasions to his knees and face. He states he is up-to-date on his tetanus. He denies any loss conscious. He does complain of mild facial pain and shoulder pain on the right. She states she hasn't range of motion secondary to pain and right shoulder. He denies any nausea vomiting or blurred vision. He denies any blood thinners. He states that he slightly sore towards the right side of his neck. (Darrell Augustine) - Related Data Home Medications Medication Instructions Recorded Confirmed Atenolol [Tenormin] 25 mg PO DAILY 08/21/16 09/18/16 Diazepam 2 mg PO DAILY PRN 08/21/16 09/18/16 Levothyroxine Sodium [Synthroid] 75 mcg PO DAILY 08/21/16 09/18/16 Lisinopril [Zestril] 20 mg PO DAILY 08/21/16 09/18/16 Multivitamins, Thera [Multivitamin 1 tab PO DAILY 08/21/16 09/18/16 (formulary)] Pramipexole [Mirapex] 0.5 mg PO HS 08/21/16 09/18/16 hydrALAZINE HCL [Apresoline] 50 mg PO BID 08/21/16 09/18/16 Hydrochlorothiazide [Hydrodiuril] 25 mg PO DAILY 09/18/16 09/18/16 Previous Rx's Medication Instructions Recorded Aspirin 81 mg PO DAILY #90 09/20/16 Atorvastatin [Lipitor] 80 mg PO HS #90 tab 09/20/16 Clopidogrel [Plavix] 75 mg PO DAILY #90 tab 09/20/16 Nitroglycerin Sl Tabs [Nitrostat] 0.4 mg SUBLINGUAL Q5M PRN #25 tab 09/20/16 Allergies Allergy/AdvReac Type Severity Reaction Status Date / Time Sulfa (Sulfonamide Allergy Unknown Verified 10/28/17 13:46 Antibiotics) Review of Systems ROS Other: All systems not noted in ROS Statement are negative. <Darrell Augustine - Last Filed: 10/28/17 14:37> ROS Other: All systems not noted in ROS Statement are negative. <Michael Oates - Last Filed: 10/28/17 14:44> ROS Statement: Those systems with pertinent positive or pertinent negative responses have been documented in the HPI. Past Medical History Past Medical History: Coronary Artery Disease (CAD), Cancer, GERD/Reflux, Hyperlipidemia, Hypertension, Osteoarthritis (OA), Prostate Disorder, Skin Disorder, Thyroid Disorder Additional Past Medical History / Comment(s): hiatal hernia, hx skin cancer History of Any Multi-Drug Resistant Organisms: None Reported Past Surgical History: Cholecystectomy, Coronary Bypass/CABG, Heart Catheterization, Tonsillectomy Additional Past Surgical History / Comment(s): triple bypass 2005, skin cancer removed from face, surgery for pyloric stenosis as , shari cataracts, laparoscopic cholecystectomy. Past Anesthesia/Blood Transfusion Reactions: No Reported Reaction Past Psychological History: No Psychological Hx Reported Smoking Status: Former smoker Past Alcohol Use History: Rare Past Drug Use History: None Reported - Past Family History Mother Family Medical History: Cancer (Mother at age of 81 from stomach cancer.) Father Family Medical History: Coronary Artery Disease (CAD) (Father at age of 81 from CAD.) Sister(s) Family Medical History: No Reported History (Patient has a younger sister with no major medical problems.) Daughter(s) Family Medical History: No Reported History (Patient has one daughter no major medical problems) Son(s) Family Medical History: No Reported History (Patient has 2 sons no major medical problems.) <Darrell Augustine - Last Filed: 10/28/17 14:37> General Exam Limitations: no limitations General appearance: alert, in no apparent distress Head exam: Present: atraumatic, normocephalic, normal inspection Eye exam: Present: normal appearance, PERRL, EOMI, periorbital swelling, periorbital tenderness (Mild right with ecchymosis). Absent: scleral icterus, conjunctival injection ENT exam: Present: normal exam, normal oropharynx, mucous membranes moist, TM's normal bilaterally, normal external ear exam, other (Right cheek there is a large hematoma, skin tear noted) Neck exam: Present: normal inspection, full ROM. Absent: tenderness, meningismus, lymphadenopathy Respiratory exam: Present: normal lung sounds bilaterally. Absent: respiratory distress, wheezes, rales, rhonchi, stridor Cardiovascular Exam: Present: regular rate, normal rhythm, normal heart sounds. Absent: systolic murmur, diastolic murmur, rubs, gallop, clicks Extremities exam: Present: other (Bilateral knees there are noted to have abrasions no active bleeding. Patient is no pain with palpation full range of motion right shoulder there is an abrasion, slight ecchymosis noted with tenderness with palpation, limited range of motion elbow is nontender full range of motion) Neurological exam: Present: alert, oriented X3, CN II-XII intact, reflexes normal, other (Finger to nose intact bilaterally). Absent: motor sensory deficit Skin exam: Present: warm, dry, intact, normal color. Absent: rash <Darrell Augustine - Last Filed: 10/28/17 14:37> Course <Darrell Augustine - Last Filed: 10/28/17 14:37> <Michael Oates - Last Filed: 10/28/17 14:44> Vital Signs 10/28/17 13:46 Temperature 98.4 F Pulse Rate 53 L Respiratory 18 Rate Blood Pressure 152/81 O2 Sat by Pulse 95 Oximetry - Reevaluation(s) Reevaluation #1: 10/28/17 14:21 certified neurodiagnostic technologist did inform me that there is noted to have intracranial hemorrhage. Patient will not go to x-ray at this time. Pending radiology reading case will be discussed with Anaya Hoang. (Darrell Augustine) Medical Decision Making <Darrell Augustine - Last Filed: 10/28/17 14:37> <Michael Oates - Last Filed: 10/28/17 14:44> - Medical Decision Making 87-year-old male presented to the emergency room for a fall is found to have intracranial hemorrhage on CT. Patient will be transferred to [facility]. Case discussed with Dr. Lynn at [facility]. Patient is neurologically intact sign vitals are stable patient will be transferred (Darrlel Augustine) Patient reevaluated by myself, Dr. Oates. Patient is alert and appropriate. Patient is neurologically intact. Patient does request medication now for headache. Cranial nerves II-12 grossly intact. All extremities with strength 5 /5 throughout. Sensation is intact throughout. Clear speech. Extra ocular muscles intact. Patient and daughter updated regarding CT findings and concern for this. Discussion is had regarding intubation. Patient is GCS 15 and neurologically intact and would like to defer intubation at this time. I did review and agree with PA findings including all diagnostic interpretations and treatment plan. I did review computed tomography scan. I did also discuss case with radiologist. [facility]. (Michael Oates) Disposition - Out of Hospital Transfer - Req. Specs Out of Hospital Transfer - Requested Specifics: Other Emergency Center ( [facility]) <Darrell Augustine - Last Filed: 10/28/17 14:37> <Michael Oates - Last Filed: 10/28/17 14:44> Clinical Impression: Fall, Subdural hematoma, Contusion of face, Right shoulder pain Disposition: OTHER INSTITUTION NOT DEFINED Condition: Stable Referrals: Matt Marrufo MD [Primary Care Provider] - 1-2 days
[2017-10-28] MEDS ORDERED: levETIRAcetam IV 1,000 MG in SALINE 1 100ML.BAG IVPB STA (14:23)
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
[2017-10-28] MEDS ORDERED: HYDROmorphone 1 MG/ML 1 ML SYRINGE IVP STA (14:44)
[2017-10-28] MEDS ORDERED: ONDANSETRON 4 MG/2 ML VIAL IVP STA ×2 (14:44→14:45)
[2017-10-28 15:07] VITALS: BP 201/96; PULSE 56
== END 2017-10-28 15:14 | disposition other institution (70) ==
LOC: EC 13:43
DX: S06.5X0A Traumatic subdural hemorrhage without loss of consciousness, initial encounter (principal); S00.83XA Contusion of other part of head, initial encounter; S80.211A Abrasion, right knee, initial encounter; S80.212A Abrasion, left knee, initial encounter; S40.011A Contusion of right shoulder, initial encounter; R40.2412 Glasgow coma scale score 13-15, at arrival to emergency department; I25.10 Atherosclerotic heart disease of native coronary artery without angina pectoris; I10 Essential (primary) hypertension; M19.90 Unspecified osteoarthritis, unspecified site; E07.9 Disorder of thyroid, unspecified; Z85.828 Personal history of other malignant neoplasm of skin; Z95.1 Presence of aortocoronary bypass graft; Z95.818 Presence of other cardiac implants and grafts; Z87.891 Personal history of nicotine dependence; Z79.899 Other long term (current) drug therapy; Z88.2 Allergy status to sulfonamides; W01.10XA Fall on same level from slipping, tripping and stumbling with subsequent striking against unspecified object, initial encounter; Y92.096 Garden or yard of other non-institutional residence as the place of occurrence of the external cause
CPT/HCPCS: 72125; 70486; 70450; 99284; 96365; 96375 ×2; J2405; J1170; J1953

== ENCOUNTER → 2018-01-20 | Outpatient (CLI) | payer MEDICARE ==
--- NOTE | 2018-01-20 13:42 | CT ---
EXAMINATION TYPE: CT brain wo con DATE OF EXAM: 01/20/2018 COMPARISON: 10/28/[address] brain INDICATION: f/u traumatic subdural hemorrhage without loc DLP: 1011.80 mGycm, Automated exposure control for dose reduction was used. CONTRAST: None CT of the brain is performed utilizing 3 mm thick sections through the posterior fossa and 3 mm thick sections through the remaining calvarium. Study is performed within 24 hours of arrival to the hosp ital. There is been interval surgery. Parietal craniotomy has been performed. There is residual extra-axial low-density collection with a depth of 0.5 cm at the craniotomy plate. This is diminished from the p revious subdural hemorrhage in this region. There appears to be some residual low density subdural he matoma along the right parietal vertex measuring 0.5 cm in depth. There is some mild prominence of th e extra-axial space on the right. No abnormal hyperdensity is present to suggest an acute intracranial hemorrhage. No mass lesion is evident. No acute infarcts are evident. Chronic appearing periventricular white matter hypodensity is present, likely chronic white matter ischemic changes. Ventricles and sulci are appropriate for the patient age. No temporal horn dilatation is evident. Th e right temporal horn is slightly more prominent than previous. Third and fourth ventricles remain mi dline. Mucosal thickening is within ethmoid air cells. The maxillary sinuses and sphenoid sinuses appear denzel ar. Frontal sinuses and mastoid air cells are clear. IMPRESSIONS: 1. Residual right subdural hematoma near the vertex of the parietal lobe. 2. Postsurgical changes of the parietal craniotomy. 3. No acute intracranial changes evident.
== END | disposition home or self-care (01) ==
LOC: RADCTMAIN 12:43
PROVIDERS: ATTEND Specialist
DX: S06.5X0D Traumatic subdural hemorrhage without loss of consciousness, subsequent encounter (principal); Z98.890 Other specified postprocedural states
CPT/HCPCS: 70450

== ENCOUNTER 2021-06-12 16:58 | Emergency (ER) | payer OTHER, MEDICARE ==
[2021-06-12] MEDS ORDERED: DIPH,PERTUS(ACELL)TETVAC-LF 0.5 ML VIAL IM ONE (17:03)
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
[2021-06-12 17:07] LABS: Glucose,Whole Blood 106 mg/dL (75-99)
[2021-06-12 17:17] LABS: Basophils % (A) 1 %; Eosinophils # (A) 0.3 k/uL (0-0.7); Eosinophils % (A) 4 %; HCT 40.3 % (39.0-53.0); HGB 13.4 gm/dL (13.0-17.5); Lymphocytes # (A) 2.1 k/uL (1.0-4.8); Lymphocytes % (A) 30 %; MCH 31.7 pg (25.0-35.0); MCHC 33.2 g/dL (31.0-37.0); MCV 95.7 fL (80.0-100.0); Mean Platelet Volume 7.5; Monocytes # (A) 0.5 k/uL (0-1.0); Monocytes % (A) 7 %; Neutrophils # (A) 4.1 k/uL (1.3-7.7); Neutrophils % (A) 57 %; Platelet Count 233 k/uL (150-450); RBC 4.21 m/uL (4.30-5.90); RDW 13.5 % (11.5-15.5); WBC 7.2 k/uL (3.8-10.6)
[2021-06-12 17:28] LABS: INR 0.9 (<1.2)
[2021-06-12 17:29] LABS: Partial Thromboplastin Time 23.6 sec (22.0-30.0)
[2021-06-12 17:33] LABS: ALT 26 U/L (4-49); AST 61 U/L (17-59); African American GFR (CKD) 58 (>60 ml/min/1.73 sqM); Albumin 4.2 g/dL (3.5-5.0); Alcohol <10 mg/dL; Alkaline Phosphatase 91 U/L (38-126); Anion Gap 8 mmol/L; Blood Urea Nitrogen 30 mg/dL (9-20); Calcium 9.2 mg/dL (8.4-10.2); Carbon Dioxide 25 mmol/L (22-30); Chloride 105 mmol/L (98-107); Glucose 110 mg/dL (74-99); Non-African American GFR(CKD) 51 (>60 ml/min/1.73 sqM); Potassium 3.9 mmol/L (3.5-5.1); Sodium 138 mmol/L (137-145); Total Bilirubin 0.8 mg/dL (0.2-1.3); Total Protein 7.7 g/dL (6.3-8.2)
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
[2021-06-12] MEDS ORDERED: HYDROmorphone 0.5 MG/0.5 ML SYRINGE IVP STA (18:05)
[2021-06-12 18:19] LABS: Appearance,Urine Clear (Clear); Bilirubin,Urine Negative (Negative); Blood,Urine Negative (Negative); Color,Urine Yellow; Glucose,Urine (UA) Negative (Negative); Ketones,Urine Negative (Negative); Leukocyte Esterase,Urine Negative (Negative); Nitrite,Urine Negative (Negative); PH, Urine 6.5 (5.0-8.0); Protein,Urine Negative (Negative); Specific Gravity,Urine 1.022 (1.001-1.035); Urobilinogen,Urine <2.0 mg/dL (<2.0)
[2021-06-12 18:27] LABS: Amphetamine Screen,Urine Not Detected (NotDetected); Barbiturate Screen,Urine Not Detected (NotDetected); Benzodiazepines Screen,Urine Not Detected (NotDetected); Cocaine Screen,Urine Not Detected (NotDetected); Methadone Screen, Urine Not Detected (NotDetected); Opiate Screen,Urine Not Detected (NotDetected); Oxycodone Screen, Urine Not Detected (NotDetected); Phencyclidine Screen,Urine Not Detected (NotDetected); Tricyclic Antidepressant,Urine Not Detected (NotDetected); Urn Cannabinoid Scrn Not Detected (NotDetected)
[2021-06-12] MEDS ORDERED: TOPICAL SKIN ADHESIVE 1 EACH AMP TOPICAL ONE (18:59)
[2021-06-12] MEDS ORDERED: KETOROLAC 15 MG/ML 1 ML VIAL IVP STA (20:00)
[2021-06-12 20:49] VITALS: BP 167/95; PULSE 86; RESP 18; TEMP 98.4
== END 2021-06-12 20:23 | disposition home or self-care (01) ==
LOC: EC 16:58
DX: S01.81XA Laceration without foreign body of other part of head, initial encounter (principal); S20.219A Contusion of unspecified front wall of thorax, initial encounter; F60.81 Narcissistic personality disorder; I25.10 Atherosclerotic heart disease of native coronary artery without angina pectoris; K21.9 Gastro-esophageal reflux disease without esophagitis; E78.5 Hyperlipidemia, unspecified; I10 Essential (primary) hypertension; M19.90 Unspecified osteoarthritis, unspecified site; E07.9 Disorder of thyroid, unspecified; Z79.82 Long term (current) use of aspirin; Z79.02 Long term (current) use of antithrombotics/antiplatelets; Z88.2 Allergy status to sulfonamides; Z85.828 Personal history of other malignant neoplasm of skin; Z90.49 Acquired absence of other specified parts of digestive tract; Z95.1 Presence of aortocoronary bypass graft; V43.52XA Car driver injured in collision with other type car in traffic accident, initial encounter; Y92.410 Unspecified street and highway as the place of occurrence of the external cause
CPT/HCPCS: 99291; 96374; 96375; 90471; 12011; 36415; 86900; 86901; 80053; 83605; 84484; 85025; 85610; 85730; 86850; 81003; 80306; 80320; 72170; 71045; 72125; 70450; 71260; 74177; 90715; J1885; J1170; Q9967; 93005